=== PATIENT | female | born 1990 | race African-American/Black ===

== ENCOUNTER 2020-03-04 00:39 | Inpatient (IN) ==
[2020-03-04 01:43] LABS: Apearance,Urine CLEAR (Clear); Bacteria,Urine Occasional /HPF (Few); Bilirubin,Urine Negative (Negative); Blood, Urine Negative (Negative); Glucose,Urine (UA) Negative (Negative); Ketones,Urine Negative (Negative); Mucus,Urine Occasional /LPF (Occasional); Nitrite,Urine Negative (Negative); Protein,Urine Negative; RBC,Urine 1 /HPF (0-4); Squamous Epithelial Cell,Urine Occasional /HPF (0-10); Urine Color Yellow (Yellow); Urine Specific Gravity 1.006 (1.001-1.035); Urine Urobilinogen < 2.0 EU/DL (0.2-1.0); WBC,Urine 1 /HPF (0-6)
[2020-03-04] MEDS ORDERED: BUTORPHANOL 2 MG/ML VIAL IV PRN (02:06)
[2020-03-04] MEDS ORDERED: ONDANSETRON 4 MG/2 ML VIAL IV PRN ×2 (02:06→06:24)
[2020-03-04] MEDS ORDERED: AMPICILLIN INJ 2,000 MG in SODIUM CHLORIDE 0.9% 100 ML IV ONE (02:15)
[2020-03-04] MEDS: LACTATED RINGERS 1,000 ML IV SCH ×2 (02:20→04:17)
[2020-03-04 02:35] LABS: Basophils % 0.3 % (0.0-0.8); Eosinophils # 0.1 10*3/uL (0.0-0.87); Eosinophils % 0.9 % (0.00-10.9); Hematocrit 33.3 VOL% (35.7-47.0); Hemoglobin 10.4 GM/DL (12.0-16.0); Immature Granulocytes % 0.2 %; Immature Granulocytes Absolute 0.01 #; Lymphocytes # 1.6 10*3/uL (1.4-4.0); Lymphocytes % 23.5 % (21.3-54.2); Mean Corpuscular HGB Conc 31.2 GM/DL (32-36); Mean Corpuscular Volume 83.5 FL (87-102); Mean Platelet Volume 11.7 FL (9.6-12.0); Monocytes % 5.3 % (1.7-12.7); Neutrophils % 69.8 % (38.7-73.9); Platelet Count 224 T/CUMM (130-400); Red Blood Count 3.99 MC/CUMM (3.8-5.5); Red Cell Distribution Width 14.6 % (9.3-17.3); White Blood Count 6.6 T/CUMM (4-12)
[2020-03-04 03:00] LABS: Alanine Aminotransferase 10 U/L (13-56); Albumin 2.4 G/DL (3.4-5.0); Alkaline Phosphatase 168 U/L (45-117); Aspartate Amino Transferase 19 U/L (0-37); Bilirubin,Total < 0.39 MG/DL (0.2-1.0); Blood Urea Nitrogen 5 MG/DL (7-18); Calcium 8.8 MG/DL (8.5-10.1); Estimated Glom Filtration Rate 172 ML/MIN; Glucose 77 MG/DL (74-106); Osmolality,Calculated 272.5 MOS/KG (273-304); Total Protein 6.8 G/DL (6.4-8.3)
[2020-03-04] MEDS ORDERED: OXYTOCIN/LR 20 UNIT/1,000 ML BAG IV ONE ×2 (03:57→05:25)
[2020-03-04 05:55] LABS: Cord Venous Blood HCO3 21.2 MMOL/L; Cord Venous Blood PCO2 45.6 MMHG; Cord Venous Blood PO2 31.4
[2020-03-04] MEDS ORDERED: BISACODYL 10 MG SUPP RECTAL PRN (06:24)
[2020-03-04] MEDS ORDERED: MAGNESIUM HYDROXIDE SUSP 30 ML UDCUP PO PRN (06:24)
[2020-03-04] MEDS ORDERED: LIDOCAINE 1% 50 ML VIAL ONE (06:25)
[2020-03-04] MEDS ORDERED: ACETAMINOPHEN 500 MG TABLET PO PRN (06:29)
[2020-03-04] MEDS ORDERED: AMPICILLIN INJ 1,000 MG in SODIUM CHLORIDE 0.9% 100 ML IV SCH (06:30)
[2020-03-04] MEDS ORDERED: LACTATED RINGERS 1,000 ML IV SCH (06:30)
[2020-03-04] MEDS ORDERED: IBUPROFEN 800 MG TABLET PO ONE (08:53)
[2020-03-04] MEDS ORDERED: IBUPROFEN 800 MG TABLET PO PRN (21:01)
[2020-03-04] MEDS: DOCUSATE SODIUM 100 MG CAPSULE PO SCH (21:10)
[2020-03-05 04:52] LABS: Basophils % 0.4 % (0.0-0.8); Eosinophils # 0.1 10*3/uL (0.0-0.87); Eosinophils % 0.9 % (0.00-10.9); Hematocrit 31.6 VOL% (35.7-47.0); Hemoglobin 9.6 GM/DL (12.0-16.0); Immature Granulocytes % 0.2 %; Immature Granulocytes Absolute 0.02 #; Lymphocytes % 23.7 % (21.3-54.2); Mean Corpuscular HGB Conc 30.4 GM/DL (32-36); Mean Platelet Volume 11.7 FL (9.6-12.0); Monocytes % 5.1 % (1.7-12.7); Neutrophils % 69.7 % (38.7-73.9); Platelet Count 215 T/CUMM (130-400); Red Blood Count 3.76 MC/CUMM (3.8-5.5); Red Cell Distribution Width 14.9 % (9.3-17.3); White Blood Count 8.4 T/CUMM (4-12)
[2020-03-05] MEDS: DOCUSATE SODIUM 100 MG CAPSULE PO SCH ×2 (10:15→10:20)
[2020-03-05 19:39] VITALS: BP 129/72
== END 2020-03-05 18:25 | disposition home or self-care (01) | DRG 807 ==
LOC: N.LDOUT 00:39 → N.LD 00:41 → N.OB 10:17
PROVIDERS: ADMIT Obstetrics & Gynecology; ATTEND Obstetrics & Gynecology